=== PATIENT | female | born 1950 | race African-American/Black ===

== ENCOUNTER 2018-10-24 19:30 | Observation (INO) ==
[2018-10-24] MEDS ORDERED: DILTIAZEM 50 MG/10 ML VIAL IV STA (19:59)
[2018-10-24] MEDS ORDERED: dilTIAZem Drip 125 MG/125 ML PREMIX IV SCH (20:00)
[2018-10-24] MEDS ORDERED: ONDANSETRON 4 MG/2 ML VIAL IV PRN (21:33)
[2018-10-24] MEDS ORDERED: ACETAMINOPHEN 325 MG TABLET PO PRN (21:33)
[2018-10-24] MEDS ORDERED: SODIUM CHLORIDE 0.9% 1,000 ML IV STA (21:53)
[2018-10-24] MEDS: ZALEPLON 5 MG CAPSULE PO PRN (23:37)
[2018-10-25] MEDS: ENOXAPARIN 80 MG/0.8 ML SYRINGE SUBCUT SCH ×2 (03:59→14:11)
[2018-10-25 05:34] LABS: Basophils % 0.5 % (0.0-0.8); Eosinophils # 0.2 10*3/uL (0.0-0.87); Eosinophils % 2.6 % (0.00-10.9); Hematocrit 43.2 VOL% (35.7-47.0); Hemoglobin 14.1 GM/DL (12.0-16.0); Immature Granulocytes % 0.1 %; Immature Granulocytes Absolute 0.01 #; Lymphocytes # 2.7 10*3/uL (1.4-4.0); Lymphocytes % 34.6 % (21.3-54.2); Mean Corpuscular HGB Conc 32.6 GM/DL (32-36); Mean Corpuscular Hemoglobin 29 PG (27-34); Mean Corpuscular Volume 90.2 FL (87-102); Mean Platelet Volume 9.9 FL (9.6-12.0); Monocytes # 0.7 10*3/uL (0.11-0.8); Monocytes % 8.6 % (1.7-12.7); Neutrophils # 4.2 10*3/uL (1.4-7.4); Neutrophils % 53.6 % (38.7-73.9); Platelet Count 296 T/CUMM (130-400); Red Blood Count 4.79 MC/CUMM (3.8-5.5); Red Cell Distribution Width 13.1 % (9.3-17.3); White Blood Count 7.8 T/CUMM (4-12)
[2018-10-25 05:57] LABS: Calcium 9.5 MG/DL (8.5-10.1); Osmolality,Calculated 280.4 MOS/KG (273-304); Potassium 3.6 MMOL/L (3.5-5.1); Risk Ratio 7.07; VLDL CHOLESTEROL 62.2 MG/DL
[2018-10-25] MEDS ORDERED: DIAZEPAM 2 MG TABLET PO ONE (07:07)
[2018-10-25] MEDS: FENOFIBRATE 145 MG TABLET PO SCH (10:06)
[2018-10-25] MEDS: ASCORBIC ACID 500 MG TABLET PO SCH ×2 (10:06→20:49)
[2018-10-25] MEDS: DOCUSATE SODIUM 100 MG CAPSULE PO PRN ×2 (10:07→23:24)
[2018-10-25] MEDS: traMADol 50 MG TABLET PO PRN ×2 (10:08→20:48)
[2018-10-25 10:11] LABS: Free T4 (Free Thyroxine) 0.83 NG/DL (0.76-1.46); Thyroid Stimulating Hormone 1.68 uIU/ml (0.358-3.74)
[2018-10-25] MEDS: COENZYME Q10 100 MG CAPSULE PO SCH (11:25)
[2018-10-25] MEDS: DICLOFENAC 1% GEL 100 GM TUBE TOP SCH ×2 (14:11→20:49)
[2018-10-25] MEDS ORDERED: ROSUVASTATIN 10 MG TABLET PO SCH (21:00)
[2018-10-25] MEDS: ZALEPLON 5 MG CAPSULE PO PRN (23:24)
[2018-10-26] MEDS: ENOXAPARIN 80 MG/0.8 ML SYRINGE SUBCUT SCH (03:29)
[2018-10-26 05:20] LABS: Basophils % 0.6 % (0.0-0.8); Eosinophils # 0.4 10*3/uL (0.0-0.87); Eosinophils % 5.7 % (0.00-10.9); Hematocrit 38.3 VOL% (35.7-47.0); Hemoglobin 12.5 GM/DL (12.0-16.0); Immature Granulocytes % 0.3 %; Immature Granulocytes Absolute 0.02 #; Lymphocytes # 2.8 10*3/uL (1.4-4.0); Lymphocytes % 40.4 % (21.3-54.2); Mean Corpuscular HGB Conc 32.6 GM/DL (32-36); Mean Corpuscular Hemoglobin 30 PG (27-34); Mean Corpuscular Volume 91.2 FL (87-102); Mean Platelet Volume 9.7 FL (9.6-12.0); Monocytes # 0.6 10*3/uL (0.11-0.8); Monocytes % 9.3 % (1.7-12.7); Neutrophils % 43.7 % (38.7-73.9); Platelet Count 272 T/CUMM (130-400); Red Cell Distribution Width 13.2 % (9.3-17.3); White Blood Count 6.8 T/CUMM (4-12)
[2018-10-26 05:34] LABS: Calcium 8.5 MG/DL (8.5-10.1); Osmolality,Calculated 280.4 MOS/KG (273-304); Potassium 3.7 MMOL/L (3.5-5.1)
[2018-10-26 08:23] VITALS: BP 142/80
[2018-10-26] MEDS: FENOFIBRATE 145 MG TABLET PO SCH (08:54)
[2018-10-26] MEDS: ASCORBIC ACID 500 MG TABLET PO SCH (08:54)
[2018-10-26] MEDS: COENZYME Q10 100 MG CAPSULE PO SCH (08:54)
[2018-10-26] MEDS ORDERED: ASPIRIN EC 81 MG TABLET PO SCH (09:00)
[2018-10-26] MEDS: DICLOFENAC 1% GEL 100 GM TUBE TOP SCH (10:35)
== END 2018-10-26 12:15 | disposition home or self-care (01) ==
LOC: N.ED 19:30 → N.EDINP 19:30 → N.TELEN 22:40
PROVIDERS: ADMIT Internal Medicine; ATTEND Internal Medicine

== ENCOUNTER 2019-06-22 07:42 | Observation (INO) ==
[2019-06-22] MEDS ORDERED: SODIUM CHLORIDE 0.9% 1,000 ML IV STA (08:29)
[2019-06-22 08:36] LABS: Basophils # 0.1 10*3/uL (0.0-0.2); Eosinophils # 0.3 10*3/uL (0.0-0.87); Eosinophils % 4.8 % (0.00-10.9); Hematocrit 46.8 VOL% (35.7-47.0); Hemoglobin 15.3 GM/DL (12.0-16.0); Immature Granulocytes % 0.2 %; Immature Granulocytes Absolute 0.01 #; Lymphocytes # 1.9 10*3/uL (1.4-4.0); Lymphocytes % 29.4 % (21.3-54.2); Mean Corpuscular HGB Conc 32.7 GM/DL (32-36); Mean Corpuscular Volume 89.5 FL (87-102); Mean Platelet Volume 9.8 FL (9.6-12.0); Monocytes % 7.1 % (1.7-12.7); Neutrophils % 57.5 % (38.7-73.9); Platelet Count 265 T/CUMM (130-400); Red Blood Count 5.23 MC/CUMM (3.8-5.5); Red Cell Distribution Width 13.2 % (9.3-17.3); White Blood Count 6.3 T/CUMM (4-12)
[2019-06-22 08:42] LABS: PT Patient Result 10.7 SECS (9.6-12.2)
[2019-06-22 08:50] LABS: Albumin 3.9 G/DL (3.4-5.0); Bilirubin,Total 0.4 MG/DL (0.2-1.0); Calcium 9.2 MG/DL (8.5-10.1); Osmolality,Calculated 277.5 MOS/KG (273-304); Total Protein 7.9 G/DL (6.4-8.3)
[2019-06-22 09:13] LABS: Apearance,Urine Clear (Clear); Urine Color Yellow (Yellow)
[2019-06-22 09:14] LABS: Bacteria,Urine Rare /HPF (Few); Bilirubin,Urine Negative (Negative); Blood, Urine Negative (Negative); Glucose,Urine (UA) Negative (Negative); Ketones,Urine Negative (Negative); Nitrite,Urine Negative (Negative); Protein,Urine Negative; RBC,Urine Rare /HPF (0-4); Squamous Epithelial Cell,Urine Rare /HPF (0-10); Urine Urobilinogen < 2.0 EU/DL (0.2-1.0); WBC,Urine Rare /HPF (0-6)
[2019-06-22 09:17] LABS: Barbiturates Screen,Urine Negative (Negative); Benzodiazepines Screen,Urine Negative (Negative); Cannabinoid Screen,Urine Negative (Negative); Opiate Screen,Urine Negative (Negative); Phencyclidine Screen,Urine Negative (Negative)
[2019-06-22] MEDS ORDERED: ONDANSETRON 4 MG/2 ML VIAL IV PRN (10:35)
[2019-06-22] MEDS ORDERED: LABETALOL 20 MG/4 ML SYRINGE IV PRN (10:38)
[2019-06-22 10:58] LABS: Risk Ratio 5.26; VLDL CHOLESTEROL 34.6 MG/DL
[2019-06-22] MEDS ORDERED: SODIUM CHLORIDE 0.9% 1,000 ML IV SCH (11:00)
[2019-06-22] MEDS: ENOXAPARIN 40 MG/0.4 ML SYRINGE SUBCUT SCH (13:03)
[2019-06-22] MEDS: ACETAMINOPHEN 325 MG TABLET PO PRN ×2 (13:03→21:29)
[2019-06-23] MEDS ORDERED: MELATONIN 3 MG TABLET PO ONE (00:02)
[2019-06-23 04:26] LABS: Basophils # 0.1 10*3/uL (0.0-0.2); Basophils % 0.7 % (0.0-0.8); Eosinophils # 0.2 10*3/uL (0.0-0.87); Eosinophils % 2.5 % (0.00-10.9); Hematocrit 42.4 VOL% (35.7-47.0); Hemoglobin 13.8 GM/DL (12.0-16.0); Immature Granulocytes % 0.1 %; Immature Granulocytes Absolute 0.01 #; Lymphocytes # 2.1 10*3/uL (1.4-4.0); Lymphocytes % 31.7 % (21.3-54.2); Mean Corpuscular HGB Conc 32.5 GM/DL (32-36); Mean Corpuscular Volume 90.8 FL (87-102); Mean Platelet Volume 9.7 FL (9.6-12.0); Monocytes % 7.8 % (1.7-12.7); Neutrophils % 57.2 % (38.7-73.9); Platelet Count 265 T/CUMM (130-400); Red Blood Count 4.67 MC/CUMM (3.8-5.5); Red Cell Distribution Width 13.3 % (9.3-17.3); White Blood Count 6.8 T/CUMM (4-12)
[2019-06-23 04:45] LABS: Calcium 9.2 MG/DL (8.5-10.1); Osmolality,Calculated 287.8 MOS/KG (273-304)
[2019-06-23] MEDS: ACETAMINOPHEN 325 MG TABLET PO PRN (04:49)
[2019-06-23] MEDS ORDERED: ASPIRIN EC 81 MG TABLET PO SCH (09:00)
[2019-06-23] MEDS ORDERED: PANTOPRAZOLE 40 MG TABLET PO SCH (09:00)
[2019-06-23 11:33] VITALS: BP 130/85
[2019-06-23] MEDS: ENOXAPARIN 40 MG/0.4 ML SYRINGE SUBCUT SCH (12:07)
== END 2019-06-23 15:22 | disposition home or self-care (01) ==
LOC: N.EDINP 07:42 → N.ED 07:42 → N.EDINP 11:52 → N.5E 11:57
PROVIDERS: ADMIT Internal Medicine Geriatric Medicine; ATTEND Internal Medicine Geriatric Medicine

== ENCOUNTER 2020-06-06 18:54 | Observation (INO) ==
[2020-06-06] MEDS ORDERED: ASPIRIN 325 MG TABLET PO STA (21:50)
[2020-06-06] MEDS ORDERED: MORPHINE 4 MG/1 ML VIAL IV STA (21:50)
[2020-06-06] MEDS ORDERED: ONDANSETRON 4 MG/2 ML VIAL IV STA (21:50)
[2020-06-06] MEDS ORDERED: diphenhydrAMINE 50 MG/1 ML VIAL ONE (22:46)
[2020-06-06] MEDS ORDERED: diphenhydrAMINE 50 MG/1 ML VIAL IV STA (22:48)
[2020-06-06] MEDS ORDERED: methylPREDNISolone SOD SUC 125 MG/2 ML VIAL IV STA (22:48)
[2020-06-06] MEDS ORDERED: FAMOTIDINE 20 MG/2 ML VIAL IV STA (22:48)
[2020-06-06 22:49] LABS: Basophils % 0.6 % (0.0-0.8); Eosinophils # 0.3 10*3/uL (0.0-0.87); Eosinophils % 4.2 % (0.00-10.9); Hematocrit 46.1 VOL% (35.7-47.0); Hemoglobin 15.4 GM/DL (12.0-16.0); Immature Granulocytes % 0.3 %; Immature Granulocytes Absolute 0.02 #; Lymphocytes # 2.2 10*3/uL (1.4-4.0); Lymphocytes % 31.1 % (21.3-54.2); Mean Corpuscular HGB Conc 33.4 GM/DL (32-36); Mean Corpuscular Volume 90.6 FL (87-102); Monocytes % 6.6 % (1.7-12.7); Neutrophils % 57.2 % (38.7-73.9); Platelet Count 299 T/CUMM (130-400); Red Blood Count 5.09 MC/CUMM (3.8-5.5); Red Cell Distribution Width 13.2 % (9.3-17.3); White Blood Count 6.9 T/CUMM (4-12)
[2020-06-06] MEDS ORDERED: methylPREDNISolone SOD SUC 125 MG/2 ML VIAL ONE (22:50)
[2020-06-06] MEDS ORDERED: FAMOTIDINE 20 MG/2 ML VIAL IV ONE (22:51)
[2020-06-06 22:58] LABS: PT Patient Result 11.2 SECS (9.8-11.9); Partial Thromboplastin Time 26.9 SECS (23.9-33.8)
[2020-06-06 23:24] LABS: Alanine Aminotransferase 26 U/L (13-56); Alkaline Phosphatase 91 U/L (45-117); Aspartate Amino Transferase 25 U/L (0-37); Blood Urea Nitrogen 11 MG/DL (7-18); Calcium 9.4 MG/DL (8.5-10.1); Estimated Glom Filtration Rate 61 ML/MIN; Glucose 105 MG/DL (74-106); Osmolality,Calculated 279.3 MOS/KG (273-304); Total Protein 8.3 G/DL (6.4-8.3); Troponin I < 0.015 NG/ML (0.00-0.045)
[2020-06-06] MEDS ORDERED: POTASSIUM CHLORIDE 20 MEQ TABLET PO STA (23:32)
[2020-06-06] MEDS ORDERED: ENOXAPARIN 100 MG/ML SYRINGE SUBCUT STA (23:38)
[2020-06-07 00:31] LABS: Bilirubin,Urine Negative (Negative); Blood, Urine Negative (Negative); Glucose,Urine (UA) Negative (Negative); Ketones,Urine Negative (Negative); Nitrite,Urine Negative (Negative); Protein,Urine Negative; RBC,Urine <1 /HPF (0-4); Squamous Epithelial Cell,Urine Occasional /HPF (0-10); Urine Appearance CLEAR (Clear); Urine Color Yellow (Yellow); Urine Specific Gravity 1.004 (1.001-1.035); Urine Urobilinogen < 2.0 EU/DL (0.2-1.0); WBC,Urine <1 /HPF (0-6)
[2020-06-07] MEDS ORDERED: ONDANSETRON 4 MG/2 ML VIAL IV PRN (01:13)
[2020-06-07] MEDS ORDERED: POTASSIUM CHLORIDE 20 MEQ TABLET PO ONE (03:07)
[2020-06-07 03:08] LABS: Barbiturates Screen,Urine Negative (Negative); Benzodiazepines Screen,Urine Negative (Negative); Cannabinoid Screen,Urine Negative (Negative); Opiate Screen,Urine Positive (Negative); Phencyclidine Screen,Urine Negative (Negative)
[2020-06-07 07:02] LABS: Risk Ratio 3.65; VLDL CHOLESTEROL 10.8 MG/DL
[2020-06-07] MEDS: ASPIRIN EC 81 MG TABLET PO SCH (08:59)
[2020-06-07] MEDS: PANTOPRAZOLE 40 MG TABLET PO SCH (09:00)
[2020-06-07] MEDS: ASCORBIC ACID 500 MG TABLET PO SCH (09:01)
[2020-06-07] MEDS: FOLIC ACID 1 MG TABLET PO SCH (09:01)
[2020-06-07] MEDS: CYANOCOBALAMIN 500 MCG TABLET PO SCH (09:02)
[2020-06-07] MEDS: ENOXAPARIN 40 MG/0.4 ML SYRINGE SUBCUT SCH (09:03)
[2020-06-07] MEDS ORDERED: LORazepam 2 MG/1 ML VIAL IV ONE (09:45)
[2020-06-08] MEDS: ENOXAPARIN 40 MG/0.4 ML SYRINGE SUBCUT SCH (08:45)
[2020-06-08] MEDS: ASPIRIN EC 81 MG TABLET PO SCH (08:45)
[2020-06-08] MEDS: ASCORBIC ACID 500 MG TABLET PO SCH (08:45)
[2020-06-08] MEDS: FOLIC ACID 1 MG TABLET PO SCH (08:45)
[2020-06-08] MEDS: PANTOPRAZOLE 40 MG TABLET PO SCH (08:45)
[2020-06-08] MEDS: CYANOCOBALAMIN 500 MCG TABLET PO SCH (08:45)
[2020-06-09 07:33] VITALS: BP 145/79
[2020-06-09] MEDS: CYANOCOBALAMIN 500 MCG TABLET PO SCH (08:00)
[2020-06-09] MEDS: ASCORBIC ACID 500 MG TABLET PO SCH (08:00)
[2020-06-09] MEDS: ENOXAPARIN 40 MG/0.4 ML SYRINGE SUBCUT SCH (08:00)
[2020-06-09] MEDS: PANTOPRAZOLE 40 MG TABLET PO SCH (08:01)
[2020-06-09] MEDS: FOLIC ACID 1 MG TABLET PO SCH (08:01)
[2020-06-09] MEDS ORDERED: GABAPENTIN 100 MG CAPSULE PO SCH (15:00)
== END 2020-06-09 08:10 | disposition left against medical advice (07) ==
LOC: N.EDINP 18:54 → N.ED 18:54 → SUPCPDRO 06-07 01:27 → N.4E 06-07 01:52
PROVIDERS: ADMIT Hospitalist; ATTEND Hospitalist